=== PATIENT | male | born 1960 | race Caucasian/White ===

== ENCOUNTER 2021-07-19 20:04 | Emergency (ER) | payer OTHER ==
[~2021-07-19] VITALS: Ht 177.8 cm; Wt 95.5 kg
[~2021-07-19 20:04] MED LIST: ASPIRIN 81M81 MG/TA2 PO; CARDI-OMEGA1000 MG; CELEXA 20MG20 MG/TAB PO; LEVAQUIN 750MG750 M1 PO; LIPITOR 40MG TA40 MG PO; MULTIPLE VITAMI1 CAP; NORCO 325 MG-51 TAB PO; PRINIVIL5 MG PO
[2021-07-19 20:08] VITALS: BP 147/81; PULSE 64; TEMP 97.9
[2021-07-19] MEDS ORDERED: COZAAR 25MG25 MG/TAB PO (20:35)
[2021-07-19] MEDS ORDERED: CEPHALEXIN500 M1 PO (21:25)
[2021-07-19] MEDS ORDERED: NORCO 325 MG-51 TAB PO (21:25)
== END 2021-07-19 21:35 | disposition home or self-care (01) ==
LOC: COL.ER 20:04
DX: L02.512 Cutaneous abscess of left hand (principal)
CPT/HCPCS: J0696

== ENCOUNTER 2022-08-18 05:18 | Day surgery (SDC) | payer OTHER ==
[2022-08-18] VITALS (11 sets, daily range): BP systolic 107–139; BP diastolic 55–94; PULSE 60–80; TEMP 98–98.6
[~2022-08-18] VITALS: Ht 177.8 cm; Wt 89.5 kg
[~2022-08-18 05:18] MED LIST changes: +CEPHALEXIN500 M1 PO; +COZAAR 25MG25 MG/TAB PO
[2022-08-18] MEDS ORDERED: DESYREL 50MG50 MG PO (05:58)
--- NOTE | 2022-08-18 19:28 | NUR ---
PT A&OX4 RESTING IN BED. PT DENIES PN. MEDS GIVEN AND ASSESSMENT COMPLETE. CBI RUNNING AND S[place] IN PLACE W ORANGE URINE OUTPUT. SCDS TO BLE. VS STABLE. NO NEEDS AT THIS TIME. CALL LIGHT WITHIN REACH.
[2022-08-19 00:45] VITALS: BP 117/63; PULSE 65; TEMP 97.7
[2022-08-19 04:24] VITALS: BP 130/59; PULSE 62; TEMP 98.7
[2022-08-19 07:12] VITALS: BP 132/67; PULSE 60; TEMP 98.5
--- NOTE | 2022-08-19 09:38 | NUR ---
Initial visit; Patient thanked Respite Provider for looking in on him and offering God's blessings. José very pleasant and states his stay here at our hospital has been all "thumbs up."
--- NOTE | 2022-08-19 11:45 | NUR ---
PATIENT ALERT AND ORIENTED X4. VSS. PATIENT COMPLAINS OF PAIN 8/10, REQUESTS PAIN MEDICATION. 3-WAY CATHETER PRIME AND PULLED. PATIENT STARTED 6 CUP ROUTINE. ASSESSMENT PERFORMED, AM MEDS ADMINISTERED. PATIENT RESTING IN BED WITH CALL LIGHT NEAR.
--- NOTE | 2022-08-19 13:20 | NUR ---
DISCHARGE INSTRUCTIONS PROVIDED. PATIENT EDUCATION GIVEN. FOLLOW UP APPOINTMENTS DISCUSSED. IV DC'D FROM LEFT WRIST. PATIENT DENIES ANY QUESTIONS OR CONCERNS. PATIENT ESCORTED OUT.
== END 2022-08-19 13:10 | disposition home or self-care (01) ==
LOC: SDCO 05:18 → SURG 10:00 → SDCO 08-19 13:10
DX: N40.1 Benign prostatic hyperplasia with lower urinary tract symptoms (principal); R39.11 Hesitancy of micturition; R39.12 Poor urinary stream; R35.1 Nocturia; Z87.891 Personal history of nicotine dependence
CPT/HCPCS: OP; J0690; J1100; J1170; J1885; J2405; J2704; J3010; J3480; J7120